=== PATIENT | male | born 1955 | race Caucasian/White ===

== ENCOUNTER 2020-04-04 09:13 | Inpatient (IN) | payer BC ==
[2020-04-04 09:56] LABS: Basophils % 1.2 % (0-1.3); Hematocrit 53.8 % (39.6-49.0); Lymphocytes % 24.9 % (15.3-44.8); MPV 9.5 fL (7.6-11.3); RBC Red Blood Cell Count 5.99 M/uL (4.33-5.43)
[2020-04-04 09:58] LABS: Protime INR 0.98
[2020-04-04 10:16] LABS: Magnesium 2.3 mg/dL (1.8-2.4); Troponin (Emerg Dept Use Only) 0.1 ng/mL (0.0-0.045)
--- NOTE | 2020-04-04 10:26 | ER ---
Nurse's Notes [facility] Name: Rm Segundo Age: 64 yrs Sex: Male : 1955 Arrival Date: 04/04/2020 Time: 09:14 Bed 8 Private MD: Clinton Bone C Diagnosis: Chest pain, unspecified;Non-ST elevation (NSTEMI) myocardial infarction Presentation: 04/04 09:18 Chief complaint: Patient states: was climbing up to second floor, working outside, iw started having karen shoulder pain and midsternal chest pain, took some aspirin, sat in his truck did not get relief, wasn't sure if he pulled something ot if he had another heart attack, had 2 stents placed a long time ago, sees Dr. Lyman. Coronavirus screen: At this time, the client does not indicate any symptoms associated with coronavirus-19. Ebola Screen: Patient negative for fever greater than or equal to 101.5 degrees Fahrenheit, and additional compatible Ebola Virus Disease symptoms Patient denies exposure to infectious person. Patient denies travel to an Ebola-affected area in the 21 days before illness onset. No symptoms or risks identified at this time. Initial Sepsis Screen: Does the patient meet any 2 criteria? No. Patient's initial sepsis screen is negative. Does the patient have a suspected source of infection? No. Patient's initial sepsis screen is negative. Risk Assessment: Do you want to hurt yourself or someone else? Patient reports no desire to harm self or others. Onset of symptoms was April 04, 2020. 09:18 Method Of Arrival: Ambulatory iw 09:18 Acuity: MARIAH 2 iw Triage Assessment: 12:37 General: Appears in no apparent distress. Behavior is calm, cooperative. iw Historical: - Allergies: 09:22 PENICILLINS; iw 09:22 bacal; iw - Home Meds: 09:22 Trulicity subcutaneous subcutaneous once wkly [Active]; carvedilol oral oral [Active]; iw Glipizide Oral [Active]; pravastatin oral oral [Active]; Lantus Sub-Q [Active]; - PMHx: 09:22 Myocardial infarction; Diabetes - IDDM; iw - PSHx: 09:22 Knee surgery; Heart stents; iw - Immunization history:: Adult Immunizations. - Social history:: Smoking status: Patient reports the use of cigarette tobacco products, smokes one pack cigarettes per day. - Family history:: not pertinent. - Hospitalizations: : No recent hospitalization is reported. Screenin:36 Abuse screen: Denies threats or abuse. Denies injuries from another. Nutritional iw screening: No deficits noted. Tuberculosis screening: No symptoms or risk factors identified. Fall Risk None identified. Assessment: 09:40 General: Appears comfortable, Behavior is calm, cooperative. Pain: Complains of pain in aa5 chest Pain currently is 0 out of 10 on a pain scale. Neuro: Level of Consciousness is awake, alert, obeys commands, Oriented to person, place, time, situation. Cardiovascular: Heart tones S1 S2 present Rhythm is regular. Respiratory: Airway is patent Respiratory effort is even, unlabored, Respiratory pattern is regular, symmetrical, Breath sounds are clear bilaterally. GI: Abdomen is obese, Abd is non tender X 4 quads. : No signs and/or symptoms were reported regarding the genitourinary system. EENT: No signs and/or symptoms were reported regarding the EENT system. Derm: Skin is pink, warm \T\ dry. Musculoskeletal: Range of motion: intact in all extremities. 10:00 Reassessment: Patient is alert, oriented x 3, equal unlabored respirations, skin aa5 warm/dry/pink. Patient denies pain at this time. Pt provided with urinal.. 11:05 Reassessment: Patient is alert, oriented x 3, equal unlabored respirations, skin aa5 warm/dry/pink. Patient denies pain at this time. Pt sitting in chair, pt states he is uncomfortable on ER stretcher. . 11:45 Reassessment: Patient is alert, oriented x 3, equal unlabored respirations, skin aa5 warm/dry/pink. Patient denies pain at this time. Vital Signs: 09:18 BP 126 / 80; Pulse 111; Resp 20 S; Pulse Ox 98% on R/A; Weight 131.54 kg; Height 6 ft. iw 1 in. (185.42 cm); Pain 2/10; 09:49 Temp 98.4(O); dh3 11:45 BP 121 / 73; Pulse 118; Resp 20 S; Pulse Ox 98% on R/A; Pain 0/10; aa5 09:18 Body Mass Index 38.26 (131.54 kg, 185.42 cm) ED Course: 09:14 Patient arrived in ED. as 09:15 Clinton Bone MD is Private Physician. as 09:21 Triage completed. iw 09:28 Daron Aguilar MD is Attending Physician. rn 09:34 Danika Rodriguez, RN is Primary Nurse. aa5 09:40 site monitor on. Pulse ox on. NIBP on. iw 09:43 Initial lab(s) drawn, by me, sent to lab. Inserted saline lock: 20 gauge in right dh3 forearm, using aseptic technique. Blood collected. 10:25 Clinton Bone MD is Hospitalizing Provider. rn 10:45 XRAY Chest (1 view) In Process Unspecified. EDMS 12:36 Patient has correct armband on for positive identification. iw 12:37 No provider procedures requiring assistance completed. Patient admitted, IV remains in iw place. Patient maintains SpO2 saturation greater than 95% on room air. Administered Medications: 11:48 Drug: Lovenox 1 mg/kg {Note: 100mg administered to left lower abd and 30mg administered aa5 to right lower abd .} Route: Sub-Q; Site: left lower abdomen; Outcome: 10:25 Decision to Hospitalize by Provider. rn 12:37 Admitted to Tele accompanied by nurse, via wheelchair, room 228. iw 12:37 Condition: good 12:37 Discharge instructions given to patient, Instructed on the need for admit. 12:37 Patient left the ED. aa5 Signatures: Dispatcher [employer] Zeinab Harmon Irene, RN RN Daron Aguilar MD MD rn Calderon, Audri, DELILAH RN aa5 Evelia Law [facility]
--- NOTE | 2020-04-04 10:26 | EDPHYS ---
Physician Documentation [facility] Name: Rm Segundo Age: 64 yrs Sex: Male : 1955 Arrival Date: 04/04/2020 Time: 09:14 Bed 8 Private MD: Clinton Bone C ED Physician Daron Aguilar HPI: 04/04 10:15 This 64 yrs old Male presents to ER via Ambulatory with complaints of Chest rn Pain, Shoulder Pain. 10:15 The patient or guardian reports chest pain that is located primarily in the substernal rn area. Onset: just prior to arrival. The pain radiates to both shoulders. Associated signs and symptoms: Pertinent positives:. 10:16 Duration: The patient or guardian reports a single episode, that is now resolved, that rn lasted 1.5 hour(s). Modifying factors: The symptoms are alleviated by ASA, the symptoms are aggravated by exertion. Severity of pain: At its worst the pain was moderate in the emergency department the pain has resolved. The patient has experienced a previous episode. Reports chest pain, substernal, radiating to both shoulders, while climbing upstairs, no relief with rest, took 3 full dose aspirin, now resolved. Has had MT with stents in past, last stress test 1-2 years ago. Currently asymptomatic. . Historical: - Allergies: 09:22 PENICILLINS; iw 09:22 bacal; iw - Home Meds: :22 Trulicity subcutaneous subcutaneous once wkly [Active]; carvedilol oral oral [Active]; iw Glipizide Oral [Active]; pravastatin oral oral [Active]; Lantus Sub-Q [Active]; - PMHx: 09:22 Myocardial infarction; Diabetes - IDDM; iw - PSHx: 09:22 Knee surgery; Heart stents; iw - Immunization history:: Adult Immunizations. - Social history:: Smoking status: Patient reports the use of cigarette tobacco products, smokes one pack cigarettes per day. - Family history:: not pertinent. - Hospitalizations: : No recent hospitalization is reported. ROS: 10:16 Constitutional: Negative for fever, chills, and weight loss, Eyes: Negative for injury, rn pain, redness, and discharge, Neck: Negative for injury, pain, and swelling, Cardiovascular: Negative for palpitations, and edema, Respiratory: Negative for cough, wheezing, and pleuritic chest pain, Abdomen/GI: Negative for abdominal pain, vomiting, diarrhea, and constipation, MS/Extremity: Negative for injury and deformity, Skin: Negative for injury, rash, and discoloration, Neuro: Negative for headache, weakness, numbness, tingling, and seizure. Exam: 09:35 ECG was reviewed by the Attending Physician. rn 10:16 Constitutional: Overweight male, no acute distress Head/Face: Normocephalic, rn atraumatic. Cardiovascular: Tachycardic, regular, equal pulses Respiratory: No increased work of breathing, no retractions or nasal flaring. Abdomen/GI: soft, non-tender Skin: Warm, dry MS/ Extremity: Pulses equal, no cyanosis. Neurovascular intact. Full, normal range of motion. Equal circumference. Neuro: Awake and alert, GCS 15 Vital Signs: 09:18 BP 126 / 80; Pulse 111; Resp 20 S; Pulse Ox 98% on R/A; Weight 131.54 kg; Height 6 ft. iw 1 in. (185.42 cm); Pain 2/10; 09:49 Temp 98.4(O); dh3 11:45 BP 121 / 73; Pulse 118; Resp 20 S; Pulse Ox 98% on R/A; Pain 0/10; aa5 09:18 Body Mass Index 38.26 (131.54 kg, 185.42 cm) iw MDM: 09:28 Patient medically screened. rn 10:23 Differential diagnosis: acute myocardial infarction, acute pericarditis, coronary rn artery disease stable angina, unstable angina. The patient was not given aspirin in the Emergency Department. Patient reports taking aspirin within the past 24 hours. Data reviewed: vital signs, nurses notes, lab test result(s), EKG, and as a result, I will admit patient. Counseling: I had a detailed discussion with the patient and/or guardian regarding: the historical points, exam findings, and any diagnostic results supporting the discharge/admit diagnosis, lab results, the need for further work-up and treatment in the hospital. Admission orders: after a detailed discussion of the patient's condition and case, the admit orders are written by me. ED course: Pt with elevated troponin, chest pain free, given 1.5 hours of pain, most likely NSTEMI, will admit to Dr. Bone with cardiology consult. . 04/04 09:33 Order name: Basic Metabolic Panel; Complete Time: 10:19 rn 04/04 09:33 Order name: CBC with Diff; Complete Time: 10:19 rn 04/04 09:33 Order name: Magnesium; Complete Time: 10:19 rn 04/04 09:33 Order name: NT PRO-BNP; Complete Time: 10:19 rn 04/04 09:33 Order name: PT-INR; Complete Time: 10:19 rn 04/04 09:33 Order name: Troponin (emerg Dept Use Only); Complete Time: 10:19 rn 04/04 09:33 Order name: XRAY Chest (1 view); Complete Time: 11:23 rn 04/04 09:33 Order name: EKG; Complete Time: 09:34 rn 04/04 09:33 Order name: Cardiac monitoring; Complete Time: 09:34 rn 04/04 09:33 Order name: EKG - Nurse/Tech; Complete Time: 09:34 rn 04/04 09:33 Order name: IV Saline Lock; Complete Time: 09:49 rn 04/04 09:33 Order name: Labs collected and sent; Complete Time: 09:49 rn 04/04 11:08 Order name: Diet Ada 1800 Cullen; Complete Time: 11:08 aa5 04/04 09:33 Order name: O2 Per Protocol; Complete Time: 09:34 rn 04/04 09:33 Order name: O2 Sat Monitoring; Complete Time: 09:34 rn EC:35 Rate is 114 beats/min. Rhythm is regular. Left axis deviation noted. QRS is positive in rn lead I and negative in lead aVF. MI interval is normal. QRS interval is prolonged. QT interval is normal. No Q waves. T waves are Normal. No ST changes noted. Clinical impression: Sinus tachycardia and RBBB. Interpreted by me. Reviewed by me. Administered Medications: 11:48 Drug: Lovenox 1 mg/kg {Note: 100mg administered to left lower abd and 30mg administered aa5 to right lower abd .} Route: Sub-Q; Site: left lower abdomen; Disposition: 04/04/20 10:25 Hospitalization ordered by Clinton Bone for Inpatient Admission. Preliminary diagnosis are Chest pain, unspecified, Non-ST elevation (NSTEMI) myocardial infarction. - Bed requested for Telemetry/MedSurg (Inpatient). - Status is Inpatient Admission. aa5 - Condition is Stable. - Problem is new. - Symptoms have improved. Signatures: Dispatcher [employer] EDBev Justin RN RN dw Williams, Irene, RN RN iw Nieto, Roman, MD MD rn Calderon, Audri, RN RN aa5 Corrections: (The following items were deleted from the chart) 11:39 10:25 Hospitalization Ordered by A Smitha ORDOÑEZ for Inpatient Admission. Preliminary dw diagnosis is Chest pain, unspecified; Non-ST elevation (NSTEMI) myocardial infarction. Bed requested for Telemetry/MedSurg (Inpatient). Status is Inpatient Admission. Condition is Stable. Problem is new. Symptoms have improved. rn 12:37 11:39 04/04/2020 10:25 Hospitalization Ordered by A Smitha ORDOÑEZ for Inpatient Admission. aa5 Preliminary diagnosis is Chest pain, unspecified; Non-ST elevation (NSTEMI) myocardial infarction. Bed requested for Telemetry/MedSurg (Inpatient). Status is Inpatient Admission. Condition is Stable. Problem is new. Symptoms have improved. dw
--- NOTE | 2020-04-04 11:21 | RAD REPORT ---
EXAM DESCRIPTION: Olamide Single View04/04/2020 10:45 am CLINICAL HISTORY: Chest pain COMPARISON: none FINDINGS: The lungs appear clear of acute infiltrate. The heart is normal size IMPRESSION: No acute abnormalities displayed
[2020-04-04] MEDS ORDERED: ENOXAPARIN 100 MG/ML SYR SQ ONE (11:50)
[2020-04-04] MEDS ORDERED: ENOXAPARIN 30 MG/0.3 ML SQ ONE (11:51)
[2020-04-04] MEDS ORDERED: ONDANSETRON 4 MG/2 ML VIAL IV PRN (12:51)
[2020-04-04 14:04] VITALS: BMI 38.2
[2020-04-04] MEDS ORDERED: NITROGLYCERIN 0.4 MG/TAB SL PRN (14:11)
[2020-04-04] MEDS ORDERED: METOPROLOL XL 25 MG TAB PO ONE (14:11)
[2020-04-04] MEDS ORDERED: D50W 25 GM/50 ML SYRINGE/VIAL IV PRN (14:12)
[2020-04-04] MEDS ORDERED: GLUCAGON 1 MG/VIAL IM PRN (14:12)
[2020-04-04] MEDS ORDERED: METOPROLOL TARTRATE 5 MG/5 ML INJ IV STA (14:42)
[2020-04-04] MEDS: NA CHLORIDE 0.9% 1,000 ML IV SCH (14:48)
[2020-04-04] MEDS: INSULIN -REGULAR HUMAN 50 UNIT/0.5 ML ML SQ SCH ×2 (16:30→21:00)
[2020-04-04] MEDS: carvediloL 6.25 MG TAB PO SCH (21:00)
[2020-04-04] MEDS ORDERED: carvediloL 6.25 MG TAB PO SCH (21:00)
[2020-04-04] MEDS: gemfibroziL 600 MG TAB PO SCH (21:51)
[2020-04-05] MEDS: NA CHLORIDE 0.9% 1,000 ML IV SCH ×2 (00:05→14:45)
--- NOTE | 2020-04-05 03:43 | HP ---
Date of Admission: 04/04/2020 Chief Complaint: Chest pain and shoulder pain. History Of Present Illness: This is a 64-year-old pleasant male patient, who was doing fine in his n ormal usual state of health until last couple of weeks, he says that he has not felt quite as good as his normal self. Today, he was carrying some heavy objects and prior to that, he actually started h aving some chest discomfort, unable to describe exact nature of the pain, but he says it was not like a crushing pain. Subsequently, he was carrying some heavy weight and climbing stairs and this disco mfort got worse and at that time, it was associated with the left shoulder pain. With that complaint , he took 3 aspirin and came into emergency room. After he was evaluated in the emergency room, he w as given Lovenox and I was contacted from emergency room admitting to the hospital for non-STEMI. He was symptom free when he was admitted and after his admission to the hospital, he has not had any re currence of chest pain. Cardiology consultation was requested and dairy hand has already evaluated him and he is scheduled to have cardiac cath for tomorrow. I saw him this evening. Allergies: PENICILLIN CAUSING DIARRHEA. Medications: He takes ProAir, aspirin, carvedilol, Trulicity, Jardiance, gemfibrozil, glipizide, Danny tus, Prevacid, and pravastatin. Review of Systems: Cardiovascular: As mentioned above. All other systems reviewed and negative. Past Medical History: Significant for allergic rhinitis, mild intermittent asthma, obstructive sleep apnea, hypertension, mixed hyperlipidemia, coronary artery disease, gastroesophageal reflux disease, and type 2 diabetes mellitus. Past Surgical History: Cataract surgery, coronary artery stent placement, lithotripsy for kidney sto ne, carpal tunnel surgery on left hand, arthroscopic knee surgery and foot surgery. Family History: Father , details unknown. Mother , had Hodgkin's lymphoma. Brother also medina d Hodgkin's lymphoma. Social History: Positive for smoking. Use of alcohol negative. Physical Examination: Vital Signs: Height 6 feet inches, weight pounds, temperature , puls e , respiratory rate , blood pressure , oxygen saturation . General: Awake, alert, oriented, not in distress. HEENT: Head atraumatic, normocephalic. Conjunctivae nonerythematous. Sclerae white. Mouth, no thr ush or edema noted. Ears/Nose, no mass, lesion, discharge noted. Neck: Supple. No JVD, lymph nodes, bruit, thyromegaly noted. Lungs: Bilateral good equal air entry. Clear to auscultation. No rhonchi. No rales. Heart: Normal heart sounds. No murmur or gallop. Abdomen: Soft. Bowel sounds normal. No guarding, rigidity, tenderness, mass, hepatosplenomegaly, d istention, or bruit noted. Extremities: No leg edema. No calf tenderness. Skin: No rash, ulcer, cellulitis. Lymphatics: No lymph node enlargement in neck, supraclavicular, infraclavicular region. Neuro: No focal neurological deficit. Chest: Unremarkable. External Genitalia: Deferred. Rectal: Deferred. Laboratory Data: Initial troponin was 0.1, second troponin 0.41, third troponin 0.49. BNP 1491. IN R 0.98. White count 7.9, hemoglobin 18.4, platelets 150. Sodium 140, potassium 4, chloride 110, bic arb 22, BUN 28, creatinine 1.36, glucose 256. EKG showed no acute ST-T changes. Impression: 1.Non-ST elevation myocardial infarction. 2.Coronary artery disease. 3.Hypertension. 4.Mixed hyperlipidemia. 5.Type 2 diabetes mellitus. 6.Mild intermittent asthma. 7.Obstructive sleep apnea. 8.Allergic rhinitis. 9.Gastroesophageal reflux disease. Plan: Admit the patient to hospital for further evaluation and management of this problem. The elio ent is appropriate for inpatient and is expected to spend 2 midnights in the hospital. We will go ah ead and continue home medications per order. Diabetes will be managed with insulin sliding scale. C ardiologist has evaluated him and the patient is scheduled to have cardiac cath, which will be done t omorrow morning. We will give IV fluid hydration per order. The patient did receive 1 dose of Loven ox in the emergency room. We will continue other current medical management. We will repeat blood w ork tomorrow morning including lipid profile, hemoglobin A1c, and chemistry. Details and plan of adelfo atment discussed with him. MITZI/MODMaura Voice ID: [id number]
[2020-04-05 06:21] LABS: Absolute Lymphocytes (CBC) 2.9 K/uL (0.7-4.9); Basophils % 1.2 % (0-1.3); Hematocrit 54.8 % (39.6-49.0); Lymphocytes % 35.9 % (15.3-44.8); MPV 9.4 fL (7.6-11.3); RBC Red Blood Cell Count 6.03 M/uL (4.33-5.43)
[2020-04-05 06:26] LABS: Albumin 3.7 g/dL (3.4-5.0); Bilirubin Total 1.2 mg/dL (0.2-1.0); Protein, Total 7.5 g/dL (6.4-8.2)
[2020-04-05 06:49] LABS: Urine Appearance CLEAR; Urine Bilirubin NEGATIVE (NEG); Urine Blood NEGATIVE (NEG); Urine Color YELLOW; Urine Glucose 3+ (NEG); Urine Protein NEGATIVE (NEG); Urine Specific Gravity 1.025 (1.005-1.030); Urine Urobilinogen 0.2 mg/dL (0.2-1.0); Urine pH 5.5 (5.0-7.0)
[2020-04-05 06:52] LABS: Urine Microscopic Reflex NO UMIC
[2020-04-05] MEDS: INSULIN -REGULAR HUMAN 50 UNIT/0.5 ML ML SQ SCH ×4 (07:30→21:00)
[2020-04-05] MEDS ORDERED: ASPIRIN EC 81 MG TAB PO SCH (09:00)
[2020-04-05] MEDS: carvediloL 6.25 MG TAB PO SCH (09:00)
[2020-04-05] MEDS ORDERED: LIDOCAINE 1% 20 ML MDV ONE (09:39)
[2020-04-05] MEDS ORDERED: HEPA 1000U/500MLS 1,000 UNIT/500 ML BAG IV ONE (09:39)
[2020-04-05] MEDS ORDERED: ATROPINE SULF 1 MG/10 ML SYR IV ONE (10:18)
[2020-04-05] MEDS ORDERED: NA CHLORIDE 0.9% 0 ML ONE (10:18)
[2020-04-05] MEDS ORDERED: FENTANYL CITR 100 MCG/2 ML ONE ×2 (10:18→11:37)
[2020-04-05] MEDS ORDERED: MIDAZOLAM HCL 2 MG/2 ML INJ ONE ×2 (10:18→10:45)
[2020-04-05] MEDS ORDERED: NITROGLYCERIN 100 MCG/ML SYR (for cath lab use only) IV ONE (10:57)
[2020-04-05] MEDS ORDERED: NITROGLYCERIN/D5W 25 MG/250 ML BTL IV ONE (10:57)
[2020-04-05] MEDS ORDERED: NA CHLORIDE 0.9% 50 ML ONE (11:00)
[2020-04-05] MEDS ORDERED: PRASUGREL (EFFIENT) 10 MG TAB ONE (11:13)
[2020-04-05] MEDS ORDERED: ACETAMINOPHEN 325 MG TABLET ONE (11:41)
[2020-04-05] MEDS ORDERED: NA CHLORIDE 0.9% 1,000 ML IV SCH (13:00)
[2020-04-05] MEDS ORDERED: MORPHINE 4 MG/ML SYR IV PRN (13:04)
[2020-04-05] MEDS ORDERED: ONDANSETRON 4 MG/2 ML VIAL IV PRN (13:04)
[2020-04-05] MEDS ORDERED: ACETAMINOPHEN 325 MG TABLET PO PRN (14:00)
[2020-04-05] MEDS: ATORVASTATIN 80 MG TAB PO SCH (15:34)
[2020-04-05] MEDS: gemfibroziL 600 MG TAB PO SCH ×2 (15:34→21:35)
[2020-04-05] MEDS: SOTALOL HCL 80 MG TAB PO SCH (18:36)
--- NOTE | 2020-04-05 20:03 | OP ---
Date of Procedure: 04/05/2020 Surgeon: Grey Lyman MD Head Scorer: Elizabeth Woo. The patient will have an Angio-Seal to close his groin entry site. He will remain at bedrest for 2-4 hours after that. We will hopefully plan to send him home tomorrow. Admitted to Dr. Bone on 04/04/2020. The patient was brought to the label fuser tender on 04/05/2020 for non-ST elevation myocardial infarction, new-onset atrial fibrillation, left heart catheterization, selectiv e coronary arteriogram, angioplasty and stent of the circumflex were done. Description Of Procedure: The patient was brought to the label fuser tender, prepped and draped in the routine sterile fashion, given Versed for sedation along with fentanyl. Using the Seldinger technique, a 6- Taiwanese sheath was introduced in the right common femoral artery after 10 cc of Xylocaine. Albaro ca theter left and right were used to do diagnostic catheterization. He was found to have a completely occluded RCA that is old with collaterals from the circumflex to the RCA, PD and he had a normal LAD, normal left main. His circumflex had about an 80% in-stent restenosis in the mid circumflex. We de cided to do an intervention. A guide was basically XB3.5 with side holes used to cannulate the left main. A 0.014 wire [place] was used to cross the lesion successfully. Stent was primarily placed. I t was a 3.5 x 16 Synergy stent with some residual. Following that, we used a noncompliant Emerge bal loon 3.5 x 15 with multiple dilatation up to 20 atmospheres with 0% residual. The patient tolerated the procedure well. Anesthesia: Total conscious sedation was 45 minutes. Complications: There were no complications. Blood Loss: 5 mL. Postoperative Diagnoses: Coronary artery disease, status post successful angioplasty and stent of th e circumflex. He has 100% right coronary artery. He also has new-onset atrial fibrillation. I will change his Coreg to Betapace and discuss the case further with Dr. Bone. We may have to do a cardio version on him in the next couple weeks or so. The patient received aspirin, Effient, and Angiomax d uring the procedure. He will be on Plavix and either Xarelto or Eliquis later. I will discuss the c ase further with Dr. Bone in that regard. NB/MODL Voice ID: [id number] Report ID: [id number]
--- NOTE | 2020-04-05 22:04 | PN ---
Date of Progress Note: 04/05/2020 Subjective: The patient was seen this morning for followup. No new complaints or problems reported by him. No chest pain. No shortness of breath. Objective: Vital Signs: Reviewed. HEENT: Unremarkable. Lungs: Clear to auscultation. Cardiac: Heart sounds normal. Abdomen: Soft. Bowel sounds normal. No guarding, rigidity, tenderness, or distention. Extremities: No leg edema. Laboratory Data: White count 8, hemoglobin 18.6, platelets 142. chloride 111, bicarb 22, BUN 24, creatinine 1.20, glucose 95. Liver function tests unremarkable. Triglycerides 357, LDL 60, total cholesterol 159, HDL 20. Impression: 1.Iye-LM-yilvwhizo myocardial infarction. 2.Coronary artery disease. 3.Type 2 diabetes mellitus. 4.Hypertension. 5.Hyperlipidemia. 6.Atrial fibrillation, paroxysmal. Plan: The patient had a cardiac cath done today and Dr. Lyman did call me and informed me of cardi ac cath results and the patient did require stent placement in his circumflex artery. Dr. Lyman al so informed me that the patient was in atrial fibrillation and he has suggested to discontinue his ca rvedilol and start sotalol starting tonight and as of tomorrow, start him on Xarelto and Plavix and discontinue his aspirin. I will see him tomorrow morning. We will possibly discharge him to go home tomorrow depending on his condition. MITZI/MODL Voice ID: [id number] Report ID: [id number]
[2020-04-06 05:10] LABS: Absolute Lymphocytes (CBC) 1.5 K/uL (0.7-4.9); Basophils % 0.9 % (0-1.3); Hematocrit 52.4 % (39.6-49.0); Lymphocytes % 21.2 % (15.3-44.8); MPV 9.2 fL (7.6-11.3)
[2020-04-06] MEDS: SOTALOL HCL 80 MG TAB PO SCH (05:14)
[2020-04-06 05:26] LABS: Potassium 4.1 mmol/L (3.5-5.1)
[2020-04-06 05:54] VITALS: O2SAT 99
[2020-04-06] MEDS: INSULIN -REGULAR HUMAN 50 UNIT/0.5 ML ML SQ SCH (07:30)
[2020-04-06] MEDS: ATORVASTATIN 80 MG TAB PO SCH (08:14)
[2020-04-06] MEDS: gemfibroziL 600 MG TAB PO SCH (08:14)
[2020-04-06 08:54] VITALS: BP 112/66; TEMP 97.6
[2020-04-06] MEDS ORDERED: CLOPIDOGREL 75 MG TABLET PO SCH (09:00)
--- NOTE | 2020-04-07 02:42 | DS ---
Date of Discharge: 04/06/2020 Disposition: Discharged to go home. Physical Examination: HEENT: Unremarkable. Lungs: Clear to auscultation. Heart: Sounds normal. Abdomen: Soft. Bowel sounds normal. No guarding, rigidity, tenderness, or distention. Extremities: No leg edema. Laboratory Data: Today, white count 7.3, hemoglobin 17.6, platelets 139. Chemistry from today, sodi um 143, potassium 4.1, chloride 112, bicarb 22, BUN 21, creatinine 1.1, and glucose 123. Hemoglobin A1c 6.9. LDL was 60. Highest troponin level was 0.62. Initial BUN 28, creatinine 1.36. Discharge Medications And Instructions: 1.Continue all prior home medications except stop aspirin and stop carvedilol. 2.Take sotalol 80 mg p.o. twice a day. 3.Xarelto 20 mg p.o. daily in evening with evening meal. 4.Clopidogrel 75 mg p.o. daily in morning. 5.Follow up at my office in 1 week. 6.Follow up with Dr. Lyman in 2 weeks. Hospital Course: A 64-year-old pleasant male patient, admitted to the hospital with complaints of ch est pain and shoulder pain. Please see dictated H and P for more information. After the patient was evaluated in the emergency room, he was admitted to the hospital with non-STEMI. He was given Loven ox in emergency room. He took 3 aspirin before he came into emergency room. After he was admitted t o the hospital, consultation was requested from optical coating technician and the patient had a cardiac cath done yesterday by Dr. Lyman, which showed 100% occlusion of RCA, which appeared to be old and had signif icant stenosis of circumflex and a stent was placed in circumflex artery. His LAD and left main were normal. After the procedure, the patient's condition remained stable. The patient was noted to hav e atrial fibrillation as of yesterday evening. We started him on sotalol. This morning when I saw h im, he was back in normal sinus rhythm. If he stays in sinus rhythm, then our goal is to probably di scontinue Xarelto after 1 month as per my discussion with Dr. Lyman. Final Diagnoses: 1.Bxm-TR-pduhgxmir myocardial infarction. 2.Coronary artery disease. 3.Hypertension. 4.Mixed hyperlipidemia. 5.Type 2 diabetes mellitus. 6.Mild intermittent asthma. 7.Obstructive sleep apnea. 8.Allergic rhinitis. 9.Gastroesophageal reflux disease. MITZI/MODL Voice ID: [id number] Report ID: [id number]
--- NOTE | 2020-04-07 09:24 | ECHO ---
HEIGHT: 6 ft 1 in WEIGHT: 290 lb 0 oz DATE OF STUDY: 04/06/[address]: Grey Lyman MD 2-DIMENSIONAL: YES M.MODE: YES DOPPLER: YES COLOR FLOW: YES TDS: YES PORTABLE: NO DEFINITY: NO BUBBLE STUDY: NO DIAGNOSIS: CHEST PAIN, NEW ONSET ATRIAL FIBRILLATION CARDIAC HISTORY: CATHERIZATION: YES SURGERY: NO PROSTHETIC VALVE: NO PACEMAKER: NO MEASUREMENTS (cm) DIASTOLIC (NORMALS) SYSTOLIC (NORMALS) IVSd 1.1 (0.6-1.2) LA Diam 4.2 (1.9-4.0) LVEF 51% LVIDd 5.7 (3.5-5.7) LVIDs 4.2 (2.0-3.5) %FS 26% LVPWd 1.1 (0.6-1.2) Ao Diam 2.7 (2.0-3.7) 2 DIMENSIONAL ASSESSMENT: RIGHT ATRIUM: NORMAL LEFT ATRIUM: DILATED RIGHT VENTRICLE: NORMAL LEFT VENTRICLE: NORMAL TRICUSPID VALVE: NORMAL MITRAL VALVE: NORMAL PULMONIC VALVE: NORMAL AORTIC VALVE: SCLEROSIS PERICARDIAL EFFUSION: NONE AORTIC ROOT: NORMAL LEFT VENTRICULAR WALL MOTION: NORMAL. DOPPLER/COLOR FLOW: NORMAL. COMMENTS: AORTIC SCLEROSIS. NORMAL LEFT VENTRICULAR SIZE AND FUNCTION. LEFT ATRIAL ENLARGEMENT. TECHNOLOGIST: ROBERT MACE
--- NOTE | 2020-04-07 09:48 | PN ---
Date of Progress Note: 04/06/2020 Subjective: Mr. Segundo underwent a heart catheterization with an angioplasty and stent of the large circumflex on 04/05/2020. This was done because of non-ST elevation myocardial infarction, history of coronary artery disease. He was noted during the catheterization to be in rapid atrial fibrillati on. The case was discussed with Dr. Bone. We switched him from Coreg to sotalol 80 mg 1 p.o. b.i.d. After 1 dose of sotalol he converted back to sinus rhythm. He is asymptomatic this morning. Objective: Vital Signs: Stable. He is afebrile. He is in sinus rhythm. Extremities: His right groin insertion site is normal. Chest: Clear. Impression: 1.My impression is that he has coronary artery disease status post successful angioplasty and stent of the circumflex. 2.Atrial fibrillation which is new onset. Plan: He should be on sotalol 80 mg b.i.d. To put him on Eliquis or Xarelto and I will leave that u p to Dr. Bone. The case was discussed with him that he should be on an anticoagulant and should be o n sotalol instead of carvedilol and should be on Plavix 75 mg daily, but no aspirin for now. After s ix months, we will take him off the Plavix and put him back on aspirin, but he should continue his an ticoagulants for now. He can go home whenever it is okay with Dr. Bone. I will see the patient in t he office in the next week or 2. FOX/PASHAL Voice ID: [id number] Report ID: [id number]
== END 2020-04-06 09:41 | disposition home or self-care (01) | DRG 247 ==
LOC: ER 09:13 → ERHOLD 11:32 → 2ND 12:26
PROVIDERS: ADMIT Internal Medicine; ATTEND Internal Medicine
PROC: 4A023N7 Measurement of Cardiac Sampling and Pressure, Left Heart, Percutaneous Approach (ICD-10-PCS; 2020-04-04)
PROC: B2111ZZ Fluoroscopy of Multiple Coronary Arteries using Low Osmolar Contrast (ICD-10-PCS; 2020-04-04)
PROC: 027034Z Dilation of Coronary Artery, One Artery with Drug-eluting Intraluminal Device, Percutaneous Approach (ICD-10-PCS; principal; 2020-04-05)
DX: I21.4 Non-ST elevation (NSTEMI) myocardial infarction (principal); I25.10 Atherosclerotic heart disease of native coronary artery without angina pectoris; I48.0 Paroxysmal atrial fibrillation; K21.9 Gastro-esophageal reflux disease without esophagitis; E11.9 Type 2 diabetes mellitus without complications; I10 Essential (primary) hypertension; E78.2 Mixed hyperlipidemia; I25.2 Old myocardial infarction; J45.20 Mild intermittent asthma, uncomplicated; G47.33 Obstructive sleep apnea (adult) (pediatric); J30.9 Allergic rhinitis, unspecified; Z88.0 Allergy status to penicillin; Z79.4 Long term (current) use of insulin; Z79.899 Other long term (current) drug therapy; Z95.5 Presence of coronary angioplasty implant and graft; Z79.82 Long term (current) use of aspirin; Z11.59 Encounter for screening for other viral diseases
CPT/HCPCS: 36415; 71045; 80048; 80053; 80061; 81003; 82947; 83036; 83735; 83880; 84484; 85025; 85347; 85610; 92928; 93005; 93306; 93454; 96372; 99285; C1725; C1760; C1893; J0583; J1644; J1650; J2250; J3010; J7030; U0002

== ENCOUNTER 2020-09-26 07:20 | Day surgery (SDC) | payer BC ==
[2020-09-26] MEDS ORDERED: CEFAZOLIN/SWI 1gm 1 GM/10 ML SYR ONE (07:58)
[2020-09-26] MEDS ORDERED: NA CHLORIDE 0.9% 1,000 ML ONE (07:58)
[2020-09-26] MEDS ORDERED: propofoL 200 MG/20 ML VIAL IV ONE (08:35)
[2020-09-26] MEDS ORDERED: MIDAZOLAM HCL 2 MG/2 ML INJ ONE (08:35)
[2020-09-26] MEDS ORDERED: INSULIN -REGULAR HUMAN 50 UNIT/0.5 ML ML ONE (08:35)
[2020-09-26] MEDS ORDERED: FENTANYL CITR 100 MCG/2 ML ONE (08:35)
[2020-09-26] MEDS ORDERED: LIDOCAINE 1% MPF 5 ML VIAL ONE (08:35)
[2020-09-26] MEDS ORDERED: ROCURONIUM 50 MG/5 ML VIAL IV ONE (08:35)
[2020-09-26] MEDS ORDERED: KETOROLAC 30 MG/ML INJ ONE (09:02)
[2020-09-26] MEDS ORDERED: ONDANSETRON 4 MG/2 ML VIAL ONE (09:02)
[2020-09-26] MEDS ORDERED: GLYCOPYRROLATE 0.2 MG/ML SYR ONE (09:08)
[2020-09-26] MEDS ORDERED: NS 0.9% VIAL 10 ML ONE (09:12)
[2020-09-26] MEDS ORDERED: EPHEDRINE SULF 50 MG/ML VIAL ONE (09:12)
--- NOTE | 2020-09-26 10:42 | OP ---
Date of Procedure: 09/26/2020 Surgeon: Rob Sorensen MD Supervisor [employer]: RIZWAN Brandt. Preoperative Diagnosis: Left hand mass, rule out skin cancer. Postoperative Diagnosis: Left hand mass, rule out skin cancer with squamous cell carcinoma. Procedure: Wide excision of left hand mass 7 x 3 cm with layered closure. Estimated Blood Loss: Minimal. Specimen: Left hand mass. Finding: Squamous cell carcinoma. Margins were free. Anesthesia: General. Complications: None. Disposition: The patient tolerated the procedure in stable condition and taken to Recovery in good g eneral condition. Procedure In Detail: The patient was brought to the OR and placed in supine position. General anest hesia was begun. The patient was prepped and draped in the usual sterile fashion. Marcaine 0.5% was infiltrated locally. A 15-blade was used to make a 7 x 3 cm incision to excise this raised mass wit h central necrosis down through the deep subcutaneous tissue, and sent to Pathology. Frozen section r evealed it to be squamous cell carcinoma. Margins were free. Subsequently wounds were irrigated. B leeding controlled with cautery. Flaps created. 2-0 chromic used to approximate subcutaneous tissue , and then a 4-0 nylon used to close skin. Sterile dressing was applied. The patient was awakened a nd taken to Recovery in good general condition. The patient will go to Day Surgery and home when stable. Disposition: Home. Condition: Stable. Discharge Instructions: Resume home medications and diet. Activity as tolerated. No heavy lifting. Keep dressing clean and dry, cover dressing with plastic prior to showering. Follow up in my offic e in 10 days. Call for appointment. Tylenol No. 3 one tablet p.o. q.4 p.r.n. pain. /MODL Voice ID: [id number] Report ID: [id number]
[2020-09-26 10:59] VITALS: BP 112/56; TEMP 97.3; O2SAT 90
== END 2020-09-26 10:51 | disposition home or self-care (01) ==
LOC: OR 07:20
PROVIDERS: ATTEND Surgery
PROC: 0JBK0ZZ Excision of Left Hand Subcutaneous Tissue and Fascia, Open Approach (ICD-10-PCS; principal; 2020-09-26 08:30)
DX: D04.62 Carcinoma in situ of skin of left upper limb, including shoulder (principal); I96 Gangrene, not elsewhere classified; Z20.822 Contact with and (suspected) exposure to COVID-19
CPT/HCPCS: 82947 ×2; 88331; 88332; 88305; 11626; J2704; J3010; J0690; J7030; J2405; J2250; U0002

== ENCOUNTER 2023-05-23 10:30 | Day surgery (SDC) | payer BC ==
[2023-05-23] MEDS ORDERED: NA CHLORIDE 0.9% 500 ML ONE (10:57)
[2023-05-23 11:16] VITALS: BP 115/58; O2SAT 92
== END 2023-05-23 12:00 | disposition home or self-care (01) ==
LOC: EKG 10:30
PROVIDERS: ATTEND Internal Medicine
DX: I48.11 Longstanding persistent atrial fibrillation (principal); Z53.8 Procedure and treatment not carried out for other reasons
CPT/HCPCS: J7040

== ENCOUNTER 2023-06-06 10:30 | Day surgery (SDC) | payer BC, OTHER ==
[2023-06-06] MEDS ORDERED: NA CHLORIDE 0.9% 500 ML ONE (12:28)
[2023-06-06] MEDS ORDERED: LIDOCAINE 2% MPF 5 ML VIAL ONE (12:49)
[2023-06-06] MEDS ORDERED: propofoL 200 MG/20 ML VIAL IV ONE (12:49)
[2023-06-06 13:34] VITALS: TEMP 98
[2023-06-06 13:35] VITALS: BP 103/63; O2SAT 96
--- NOTE | 2023-06-06 14:27 | OP ---
Date of Procedure: 06/06/2023 Surgeon: SANJIV MARTELL Procedure Performed: Transesophageal echocardiogram. Diagnosis: Atrial fibrillation, with Watchman placement. Description Of Procedure: After risks, benefits, and alternatives were explained, the patient agreed to procedure and signed informed consent. After appropriate time-out, propofol was administered by Anesthesia, and then GEOFF probe was inserted without difficulties and Watchman was seated well. No th rombus or leak. I removed the GEOFF probe and patient was sent to recovery in stable condition. Conclusion: Successful GEOFF with Watchman seated well. No leak or thrombus. Plan: Stop the Xarelto and start aspirin and Plavix for the next 4 months. SR/MODL Voice ID: [id number] Report ID: [id number]
--- NOTE | 2023-06-06 14:34 | TEE ---
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 TRANSESOPHAGEAL ECHOCARDIOGRAM INSERTED, NO DIFFICULTY 2. NORMAL LEFT VENTRICUALR EJECTION FRACTION 55-60% 3. MILD MITRAL REGURGITATION 4. WATCHMAN IS SEATED WELL, NO THROMBUS, NO LEAK TECHNOLOGIST: LEMUEL RHODES
== END 2023-06-06 13:50 | disposition home or self-care (01) ==
LOC: EKG 10:30
PROVIDERS: ATTEND Internal Medicine
DX: I48.11 Longstanding persistent atrial fibrillation (principal); Z98.890 Other specified postprocedural states; I34.0 Nonrheumatic mitral (valve) insufficiency
CPT/HCPCS: 93312; J2704; J2001; J7040

== ENCOUNTER 2024-10-06 09:52 | Day surgery (SDC) | payer OTHER ==
[2024-10-01 09:52] LABS: Absolute Basophils 0.1 K/uL (0-0.5); Absolute Eosinophils 0.1 K/uL (0-0.5); Absolute Lymphocytes (CBC) 2.4 K/uL (0.7-4.9); Absolute Monocytes 0.7 K/uL (0.1-1.3); Absolute Neutrophil 4.8 K/uL (1.8-8.0); Eosinophils % 1.4 % (0-4.4); Hemoglobin 17.2 g/dL (13.6-17.9); Lymphocytes % 29.8 % (15.3-44.8); MCH 30.4 pg (27.0-35.0); MCHC 33.1 g/dL (32.0-36.0); MCV 91.9 fL (80-100); MPV 9.1 fL (7.6-11.3); Monocytes % 8.4 % (3.3-12.3); Neutrophils % 59.4 % (41.7-73.7); Nucleated Red Blood Cells % 0.2 % (0-0); Platelets 169 thou/uL (152-406); RBC Red Blood Cell Count 5.66 M/uL (4.33-5.43); Red Cell Distribution Width 15.2 % (12.1-15.2)
[2024-10-06] MEDS: NA CHLORIDE 0.9% 1,000 ML ONE (09:52)
[2024-10-06] MEDS ORDERED: LIDOCAINE 2% MPF 5 ML VIAL ONE (10:26)
[2024-10-06] MEDS ORDERED: FENTANYL CITR 100 MCG/2 ML ONE (10:26)
[2024-10-06] MEDS ORDERED: KETOROLAC 30 MG/ML INJ ONE (10:26)
[2024-10-06] MEDS ORDERED: ONDANSETRON 4 MG/2 ML VIAL ONE (10:26)
[2024-10-06] MEDS ORDERED: propofoL 200 MG/20 ML VIAL IV ONE (10:26)
[2024-10-06] MEDS ORDERED: dexAMETHasone 10 MG/ML VIAL ONE (10:26)
[2024-10-06] MEDS ORDERED: MIDAZOLAM HCL 2 MG/2 ML INJ ONE (10:27)
[2024-10-06] MEDS: CEFAZOLIN SODIUM 1 GM/VIAL ONE (11:29)
[2024-10-06 12:53] VITALS: O2SAT 96
[2024-10-06 14:36] VITALS: BP 107/47; TEMP 97
--- NOTE | 2024-10-06 20:31 | OP ---
Date of Procedure: 10/06/2024 Surgeon: Simon Abdi MD Preoperative Diagnosis: Right severe carpal tunnel syndrome. Postoperative Diagnosis: Right severe carpal tunnel syndrome. Procedure: Right open carpal tunnel release. Estimated Blood Loss: Less than 3 cc. Complications: There were no complications. Specimens: No pathology specimens sent. Indication For Operation: Mr. 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 Unfortunately, he is having worsening symptoms related t o his right hand, which makes it very difficult for him to work. He does have NCVs, which demonstrat e severe carpal tunnel syndrome. He has had carpal tunnel release on the left side. His left side i s doing fine, but now requests carpal tunnel release on the right. Risks, benefits, alternatives wer e discussed with him, including the possibility of incomplete relief or delayed relief as well as oth er possible complications listed in the consent form. He states he understands things as presented a nd wants to proceed. Description Of Procedure: The patient was taken to the operating room, placed in supine position. G eneral anesthesia was easily obtained by Anesthesia staff. Following this, a well-padded tourniquet was placed on the superior right arm. Right upper extremity was then prepped and draped in usual ileana rile fashion for the procedure. Following this, the arm was then elevated, but not exsanguinated and tourniquet was raised. A standard incision was made, which parallels the thenar crease with ulnar d eviation at the wrist crease. This was taken down carefully through the skin only. Meticulous hemos tasis being maintained using bipolar electrocautery. This leads down to the palmar fascia, which was then divided longitudinally. After this, any obstructions of the transverse carpal ligament were th en gently swept to the side and a small radha was made in the transverse carpal ligament to allow for visualization of the underlying structures. Neurologic structures were protected as this opening was then extended from proximal to distal until there were no constricting bands. It was then extended from distal to proximal until there were no constricting bands, including a fairly good amount of vol ar forearm fascia. Following this, the nerve was examined. It was found to be within continuity. T he skin was then closed using interrupted nylon sutures. The patient was placed in a well-padded ileana rile dressing, awakened, and taken to recovery room in good condition. There were no complications. SE/MODL Voice ID: [id number] Report ID: [id number]
== END 2024-10-06 13:31 | disposition home or self-care (01) ==
LOC: OR 09:52
PROVIDERS: ATTEND Orthopaedic Surgery
PROC: 01N50ZZ Release Median Nerve, Open Approach (ICD-10-PCS; principal; 2024-10-06 11:29)
DX: G56.01 Carpal tunnel syndrome, right upper limb (principal); E11.9 Type 2 diabetes mellitus without complications; Z86.73 Personal history of transient ischemic attack (TIA), and cerebral infarction without residual deficits; Z88.0 Allergy status to penicillin
CPT/HCPCS: 85025; 80048; 36415; 82947 ×2; 64721; J2704; J2003; J2250; J3010; J1100; J2405; J7030; J0690